=== PATIENT | male | born 1975 | race Caucasian/White ===

== ENCOUNTER 2020-09-04 00:31 | Inpatient (IN) | payer MEDICAID ==
[2020-09-04] VITALS (14 sets, daily range): BP systolic 99–117; BP diastolic 54–74
[~2020-09-04] VITALS: Ht 182.9 cm; Wt 109.5 kg
[~2020-09-04 00:31] MED LIST: DOCU100C40 PO; FAMO20TA8 PO; IBUP-1984 PO; LACT1CAP26 PO; LINE600T11 PO; NICO-631 TD
[2020-09-04] MEDS ORDERED: ringers solution, lactated 1000ml IV soln IV ONE (01:00)
[2020-09-04] MEDS ORDERED: haloperidol lactate 5mg/ml inj IM ONE (01:00)
[2020-09-04] MEDS ORDERED: LORazepam 2 mg/ml vial IM ONE (01:00)
[2020-09-04] MEDS ORDERED: diphenhydrAMINE 50 mg/ml inj IM ONE (01:00)
[2020-09-04] MEDS ORDERED: naloxone 2mg/2ml inj IV STA (02:22)
[2020-09-04 02:29] LABS: BASOPHILS % (AUTO) 0.1 % (0-1); EOSINOPHILS # (AUTO) 0.1 X10'3 (0-0.9); EOSINOPHILS % (AUTO) 0.4 % (0-6); HEMOGLOBIN 16.6 g/dl (14.0-17.9); LYMPHOCYTES # (AUTO) 0.5 X10'3 (1.1-4.8); LYMPHOCYTES % (AUTO) 3.1 % (21-51); MEAN CORPUSCULAR HEMOGLOBIN 31.4 PG (27.0-31.0); MEAN CORPUSCULAR HGB CONC 33.9 g/dL (33.0-36.5); MEAN CORPUSCULAR VOLUME 92.6 FL (78-98); MEAN PLATELET VOLUME 6.6 FL (7.4-10.4); MONOCYTES # (AUTO) 1.2 X10'3 (0-0.9); MONOCYTES % (AUTO) 7.4 % (2-12); NEUTROPHILS # (AUTO) 14.6 X10'3 (1.8-7.7); PLATELET COUNT 254 X10'3 (140-440); RED BLOOD COUNT 5.29 X10'6 (4.70-6.10); RED CELL DISTRIBUTION WIDTH 12.9 % (11.5-14.5); WHITE BLOOD COUNT 16.3 X10'3 (4.5-11.0)
[2020-09-04 02:32] LABS: ALANINE AMINOTRANSFERASE 46 U/L (12-78); ALBUMIN 4.7 G/DL (3.4-5.0); ALBUMIN/GLOBULIN RATIO 1.3 (1.1-1.5); ALKALINE PHOSPHATASE 79 IU/L (46-116); ANION GAP 15 (8-16); ASPARTATE AMINO TRANSFERASE 75 U/L (10-37); BILIRUBIN,TOTAL 1.2 MG/DL (0.1-1.0); BLOOD UREA NITROGEN 32 MG/DL (7-18); BUN/CREATININE RATIO 16.7 (5.4-32.0); CHLORIDE 109 MMOL/L (99-107); CREATININE 1.92 MG/DL (0.60-1.10); GLUCOSE 98 MG/DL (70-104); POTASSIUM 3.8 MMOL/L (3.5-5.1); SODIUM 150 MMOL/L (135-145); TOTAL CARBON DIOXIDE 25.7 MMOL/L (24-32); TOTAL PROTEIN 8.4 G/DL (6.4-8.2); eGFR 38 ML/MIN
[2020-09-04 02:41] LABS: CREATINE KINASE 1895 U/L (39-308); ETHANOL < 0.010 GM/DL (0.0-0.010)
[2020-09-04 03:19] LABS: URINE AMPHETAMINE SCREEN POSITIVE (Neg); URINE BARBITUATE SCREEN NEGATIVE (Neg); URINE BENZODIAZEPINES SCREEN NEGATIVE (Neg); URINE CANNABINOID SCREEN NEGATIVE (Neg); URINE COCAINE SCREEN NEGATIVE (Neg); URINE METHADONE SCREEN NEGATIVE (Neg); URINE OPIATE SCREEN POSITIVE (Neg); URINE PHENCYCLIDINE SCREEN NEGATIVE (Neg)
[2020-09-04] MEDS ORDERED: normal saline 1000ML IV soln IV ONE (03:20)
[2020-09-04] MEDS ORDERED: ondansetron/PF 4mg/2ml inj IV PRN (03:20)
[2020-09-04] MEDS ORDERED: ringers solution, lacted 1,000 ML IV SCH (03:20)
[2020-09-04] MEDS ORDERED: piperacillin/tazo 3.375gm/50ml 50 ML IV ONE (03:20)
[2020-09-04] MEDS ORDERED: dexmedetomidine/D5W 100mL 100 ML IV SCH (03:25)
[2020-09-04 03:39] LABS: COLOR,URINE YELLOW (Yellow); GLUCOSE, URINE NEGATIVE (Neg); KETONES,URINE 15 mg/dl (Neg); LEUKOCYTE ESTERASE ,URINE NEGATIVE (Neg); NITRITES, URINE NEGATIVE (Neg); OCCULT BLOOD,URINE MODERATE (Neg); PH,URINE 5.5 (4.8-8.0); PROTEIN,URINE 100 mg/dl (Neg)
[2020-09-04 03:50] LABS: CLARITY,URINE SLIGHTLY CLOUDY (Clear); UA COLLECTION TYPE NON-SPECIFIED
[2020-09-04 04:24] LABS: BACTERIA,URINE FEW /HPF (Neg); MUCUS STRANDS FEW /LPF (Neg); RBC,URINE 0-2 /HPF (0-2); SQUAMOUS EPITHELIAL CELL,UR FEW /LPF (FEW); WBC,URINE 0-4 /HPF (0-4)
[2020-09-04] MEDS ORDERED: vancomycin/NS 1 GM ADD-VANTAGE 250 ML IV ONE (05:15)
--- NOTE | 2020-09-04 05:25 | NUR ---
Patient to combative to go to CT right now.
[2020-09-04] MEDS: sodium chloride 0.45% 1,000 ML IV SCH ×3 (05:46→12:02)
[2020-09-04] MEDS ORDERED: piperacillin/tazo 3.375gm/50ml 50 ML IV SCH (08:00)
[2020-09-04] MEDS ORDERED: pantoprazole 40 MG vial IV SCH (08:00)
[2020-09-04] MEDS ORDERED: NO HOME MEDS (08:15)
--- NOTE | 2020-09-04 09:40 | NUR ---
called CT will come and get pt when able for ct
--- NOTE | 2020-09-04 10:15 | NUR ---
PT RECEIVED FROM CT SCAN TO ROOM 2013. SLEEPING, BUT AWAKENS TO VOICE - LOUD AND SHAKING. DR PENNY HERE. 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 UNSURE OF THE DAY OR WHY HES HERE. GOES RIGHT BACK TO SLEEP WHEN NOT TALKED TO. BUMP ON FOREHEAD WITH ABRASION. BRUISE RT INNER ARM. NUMEROUS BRUISES AND ABRASIONS ON BLE.
[2020-09-04] MEDS: piperacillin/tazo 3.375gm/50ml 50 ML IV SCH ×2 (12:03→19:18)
--- NOTE | 2020-09-04 12:44 | NUR ---
DR PENNY IN AGAIN- CONCERNED FRO REDDNES ON HANDS- SOME PARTS OF ARMS- ABX TO BE CONTINUED.
[2020-09-04 12:50] LABS: ALBUMIN 3.5 G/DL (3.4-5.0); ANION GAP 10 (8-16); BLOOD UREA NITROGEN 27 MG/DL (7-18); BUN/CREATININE RATIO 27.6 (5.4-32.0); CALCIUM 7.8 MG/DL (8.5-10.1); CHLORIDE 108 MMOL/L (99-107); CREATININE 0.98 MG/DL (0.60-1.10); GLUCOSE 86 MG/DL (70-104); POTASSIUM 3.7 MMOL/L (3.5-5.1); SODIUM 143 MMOL/L (135-145); TOTAL CARBON DIOXIDE 25.2 MMOL/L (24-32); eGFR 83 ML/MIN
[2020-09-04 12:51] LABS: CREATINE KINASE 2263 U/L (39-308)
[2020-09-04] MEDS: normal saline 1000ml 1,000 ML IV SCH ×2 (14:29→19:47)
--- NOTE | 2020-09-04 14:47 | NUR ---
LABS SHOWN TO . IVF CHANGED TO NS AT 150/HR FOR INC CK WITH NORMALIZING NA. LABS TO Q6H
--- NOTE | 2020-09-04 14:49 | NUR ---
PICC NURSE PAGED TO ATTEMPT MIDLINE OR US GUIDED PIV FOR LAB DRAWS PT A DIFFICULT STICK. ORGAN GRINDER CALLED. NO PICC NURSE TIL 5/3- NOTIFIED. PT TAKING FLUIDS WELL, OUTPUT BY FC ADEQUATE.
[2020-09-04] MEDS ORDERED: dexmedetomidine/D5W 100mL 100 ML IV PRN (16:00)
[2020-09-04] MEDS ORDERED: vancomycin/NS 1 GM ADD-VANTAGE 250 ML IV SCH (17:00)
[2020-09-04] MEDS: lactobacillus rhamnosus 10,000 MMU CELLS/CAPSULE PO SCH (19:18)
[2020-09-04 20:08] LABS: ALBUMIN 3.2 G/DL (3.4-5.0); ANION GAP 7 (8-16); BLOOD UREA NITROGEN 23 MG/DL (7-18); BUN/CREATININE RATIO 25.3 (5.4-32.0); CALCIUM 7.8 MG/DL (8.5-10.1); CHLORIDE 106 MMOL/L (99-107); CREATININE 0.91 MG/DL (0.60-1.10); GLUCOSE 100 MG/DL (70-104); POTASSIUM 3.5 MMOL/L (3.5-5.1); SODIUM 139 MMOL/L (135-145); TOTAL CARBON DIOXIDE 26.2 MMOL/L (24-32); eGFR > 90 ML/MIN
[2020-09-04 20:09] LABS: CREATINE KINASE 2147 U/L (39-308)
[2020-09-04] MEDS ORDERED: proCHLORperazine 10 MG/2 ml inj IV PRN (22:55)
[2020-09-05] VITALS (18 sets, daily range): BP systolic 94–138; BP diastolic 44–97
[2020-09-05] MEDS: piperacillin/tazo 3.375gm/50ml 50 ML IV SCH ×3 (03:06→20:35)
[2020-09-05] MEDS: normal saline 1000ml 1,000 ML IV SCH ×4 (03:20→17:40)
[2020-09-05 05:20] LABS: ALBUMIN 2.9 G/DL (3.4-5.0); ANION GAP 8 (8-16); BLOOD UREA NITROGEN 16 MG/DL (7-18); BUN/CREATININE RATIO 21.1 (5.4-32.0); CALCIUM 7.7 MG/DL (8.5-10.1); CHLORIDE 106 MMOL/L (99-107); CREATININE 0.76 MG/DL (0.60-1.10); GLUCOSE 126 MG/DL (70-104); POTASSIUM 3.4 MMOL/L (3.5-5.1); SODIUM 139 MMOL/L (135-145); TOTAL CARBON DIOXIDE 25.1 MMOL/L (24-32); eGFR > 90 ML/MIN
[2020-09-05 05:22] LABS: CREATINE KINASE 1578 U/L (39-308)
--- NOTE | 2020-09-05 06:08 | NUR ---
Problems reprioritized. Patient report given, questions answered & plan of care reviewed with Faina RN.
[2020-09-05] MEDS ORDERED: magnesium 4gm in 100ml NS 100 ML IV PRN (07:30)
[2020-09-05] MEDS ORDERED: magnesium Cl slow-release 64mg tablet PO PRN (07:30)
[2020-09-05] MEDS ORDERED: potassium Cl 40MEQ/1/2NS 520ml 520 ML IV PRN (07:30)
[2020-09-05] MEDS ORDERED: potassium Cl 20 mEq SR tablet PO PRN (07:30)
[2020-09-05 07:57] LABS: MAGNESIUM 1.9 MG/DL (1.5-2.4)
[2020-09-05] MEDS: K and/or MAG REPLACEMENT MC SCH ×2 (08:00→20:00)
[2020-09-05] MEDS: potassium Cl 20 mEq SR tablet PO PRN ×2 (08:37→14:14)
[2020-09-05] MEDS: lactobacillus rhamnosus 10,000 MMU CELLS/CAPSULE PO SCH ×2 (08:37→20:35)
--- NOTE | 2020-09-05 09:18 | NUR ---
Cassidy belcher dc"d per policy pt claribel dunbar
[2020-09-05 15:31] LABS: BASOPHILS % (AUTO) 0.3 % (0-1); EOSINOPHILS # (AUTO) 0.2 X10'3 (0-0.9); EOSINOPHILS % (AUTO) 2.7 % (0-6); HEMATOCRIT 42.1 % (42.0-52.0); HEMOGLOBIN 14.2 g/dl (14.0-17.9); LYMPHOCYTES # (AUTO) 0.7 X10'3 (1.1-4.8); LYMPHOCYTES % (AUTO) 12.1 % (21-51); MEAN CORPUSCULAR HEMOGLOBIN 31.3 PG (27.0-31.0); MEAN CORPUSCULAR HGB CONC 33.6 g/dL (33.0-36.5); MEAN PLATELET VOLUME 6.8 FL (7.4-10.4); MONOCYTES # (AUTO) 0.5 X10'3 (0-0.9); MONOCYTES % (AUTO) 8.9 % (2-12); NEUTROPHILS # (AUTO) 4.6 X10'3 (1.8-7.7); PLATELET COUNT 190 X10'3 (140-440); RED BLOOD COUNT 4.53 X10'6 (4.70-6.10); RED CELL DISTRIBUTION WIDTH 13.1 % (11.5-14.5); WHITE BLOOD COUNT 6.1 X10'3 (4.5-11.0)
[2020-09-05 15:52] LABS: ANION GAP 4 (8-16); BLOOD UREA NITROGEN 11 MG/DL (7-18); BUN/CREATININE RATIO 14.1 (5.4-32.0); CALCIUM 8.2 MG/DL (8.5-10.1); CHLORIDE 109 MMOL/L (99-107); CREATININE 0.78 MG/DL (0.60-1.10); GLUCOSE 123 MG/DL (70-104); POTASSIUM 3.7 MMOL/L (3.5-5.1); SODIUM 141 MMOL/L (135-145); TOTAL CARBON DIOXIDE 28.5 MMOL/L (24-32); eGFR > 90 ML/MIN
[2020-09-05 15:59] LABS: CREATINE KINASE 1120 U/L (39-308)
[2020-09-05] MEDS ORDERED: VANCOMYCIN LEVEL IV ONE (16:30)
--- NOTE | 2020-09-05 17:32 | NUR ---
Patient in room CICU 2012. I have received report from EMT/DISPATCHER Randolph and had the opportunity to ask questions and assume patient care.
--- NOTE | 2020-09-05 17:50 | NUR ---
Patient transferred to surgical unit; report given to Nikkie MCLEOD with all questions answered.
--- NOTE | 2020-09-05 17:50 | NUR ---
Patient arrived into room 357A. Patient appeared to be in good spirits and was able to transfer self into bed via wheelchair from RN. All personal items were sent. Pt was orientated to room and supplies and appears to be tolerating well to everything. VSS: BP:163/97, HR:81, O2((%RA, Temp:98.4, Pain 0/10. Patient's fluids NS@150 and finishing antibiotic. Mary Ellen RN is aware of needing a 2 RN skin check, but unit to unir transfer was complete. SCDS are on pt and pt is able to ambulate.
--- NOTE | 2020-09-05 18:26 | NUR ---
Patient in room [facility]. I have received report from SHANI Lundy and had the opportunity to ask questions and assume patient care.
--- NOTE | 2020-09-05 18:41 | NUR ---
Problems reprioritized. Patient report given, questions answered & plan of care reviewed with Mary Ellen MCLEOD.
[2020-09-05] MEDS: enoxaparin 40mg/0.4ml syringe SUBCUT SCH (20:36)
[2020-09-06] VITALS: BP 132/72
[2020-09-06] MEDS: piperacillin/tazo 3.375gm/50ml 50 ML IV SCH ×2 (04:26→12:22)
[2020-09-06] MEDS: normal saline 1000ml 1,000 ML IV SCH ×4 (06:00→13:59)
--- NOTE | 2020-09-06 06:24 | NUR ---
Patient in room [facility]. I have received report from SHANI Hyde and had the opportunity to ask questions and assume patient care.
--- NOTE | 2020-09-06 06:53 | NUR ---
Problems reprioritized. Patient report given, questions answered & plan of care reviewed with SHANI Larry.
[2020-09-06] MEDS: lactobacillus rhamnosus 10,000 MMU CELLS/CAPSULE PO SCH ×2 (07:02→19:57)
[2020-09-06 07:30] VITALS: BP 131/75
[2020-09-06] MEDS: K and/or MAG REPLACEMENT MC SCH ×2 (08:00→19:52)
--- NOTE | 2020-09-06 10:55 | NUR ---
Dr. Ang garcia lab was unable to obtain blood draw for 0300 labs ordered. Orders for CMP and CK for [address] Fry ok that all labs for 0300 and 1500 ordered to be drawn now. Asya in lab aware. Addendum: 09/06/20 at 1059 by Kendy Alvares RN All labs for today ordered for 0300 and 1500 ok to be drawn now per Dr. Fry.
--- NOTE | 2020-09-06 10:59 | NUR ---
Dr. Fry in to see patient.
[2020-09-06 11:00] VITALS: BP 132/89
--- NOTE | 2020-09-06 11:11 | NUR ---
x3 grease maker head attempted blood draw for labs but unsuccessful. Dr. Fry aware and ok to draw blood for lab from PIV.
[2020-09-06 11:36] LABS: BASOPHILS % (AUTO) 0.3 % (0-1); EOSINOPHILS # (AUTO) 0.2 X10'3 (0-0.9); EOSINOPHILS % (AUTO) 3.5 % (0-6); HEMATOCRIT 43.5 % (42.0-52.0); HEMOGLOBIN 14.7 g/dl (14.0-17.9); LYMPHOCYTES # (AUTO) 0.8 X10'3 (1.1-4.8); LYMPHOCYTES % (AUTO) 18.3 % (21-51); MEAN CORPUSCULAR HEMOGLOBIN 31.9 PG (27.0-31.0); MEAN CORPUSCULAR HGB CONC 33.9 g/dL (33.0-36.5); MEAN CORPUSCULAR VOLUME 94.1 FL (78-98); MEAN PLATELET VOLUME 7.6 FL (7.4-10.4); MONOCYTES # (AUTO) 0.5 X10'3 (0-0.9); MONOCYTES % (AUTO) 10.9 % (2-12); PLATELET COUNT 155 X10'3 (140-440); RED BLOOD COUNT 4.62 X10'6 (4.70-6.10); RED CELL DISTRIBUTION WIDTH 13.3 % (11.5-14.5); WHITE BLOOD COUNT 4.5 X10'3 (4.5-11.0)
[2020-09-06 11:51] LABS: ALBUMIN 3.2 G/DL (3.4-5.0); ANION GAP 11 (8-16); BLOOD UREA NITROGEN 7 MG/DL (7-18); BUN/CREATININE RATIO 11.3 (5.4-32.0); CALCIUM 8.3 MG/DL (8.5-10.1); CHLORIDE 108 MMOL/L (99-107); CREATININE 0.62 MG/DL (0.60-1.10); GLUCOSE 100 MG/DL (70-104); MAGNESIUM 1.8 MG/DL (1.5-2.4); SODIUM 141 MMOL/L (135-145); TOTAL CARBON DIOXIDE 22.2 MMOL/L (24-32); eGFR > 90 ML/MIN
[2020-09-06 11:53] LABS: CREATINE KINASE 834 U/L (39-308)
[2020-09-06 11:57] LABS: POTASSIUM 4.5 MMOL/L (3.5-5.1)
[2020-09-06 18:00] VITALS: BP 138/84
--- NOTE | 2020-09-06 18:16 | NUR ---
Problems reprioritized. Patient report given, questions answered & plan of care reviewed with SHANI Nieto.
--- NOTE | 2020-09-06 18:30 | NUR ---
Patient in room [facility]. I have received report from WARD MCLEOD and had the opportunity to ask questions and assume patient care.
[2020-09-06] MEDS: enoxaparin 40mg/0.4ml syringe SUBCUT SCH (19:58)
[2020-09-07] VITALS: BP 129/87
[2020-09-07] MEDS: normal saline 1000ml 1,000 ML IV SCH ×2 (02:00→08:40)
--- NOTE | 2020-09-07 06:43 | NUR ---
Problems reprioritized. Patient report given, questions answered & plan of care reviewed with ZACK MCLEOD.
--- NOTE | 2020-09-07 06:50 | NUR ---
Patient in room [facility]. I have received report from Emilia MCLEOD and had the opportunity to ask questions and assume patient care.
[2020-09-07 07:00] VITALS: BP 136/83
[2020-09-07] MEDS: K and/or MAG REPLACEMENT MC SCH (08:00)
[2020-09-07 09:41] LABS: BASOPHILS % (AUTO) 0.4 % (0-1); EOSINOPHILS # (AUTO) 0.2 X10'3 (0-0.9); EOSINOPHILS % (AUTO) 5.1 % (0-6); HEMATOCRIT 44.9 % (42.0-52.0); HEMOGLOBIN 15.5 g/dl (14.0-17.9); LYMPHOCYTES # (AUTO) 1.2 X10'3 (1.1-4.8); LYMPHOCYTES % (AUTO) 25.5 % (21-51); MEAN CORPUSCULAR HEMOGLOBIN 32.1 PG (27.0-31.0); MEAN CORPUSCULAR HGB CONC 34.6 g/dL (33.0-36.5); MEAN CORPUSCULAR VOLUME 92.6 FL (78-98); MEAN PLATELET VOLUME 7.1 FL (7.4-10.4); MONOCYTES # (AUTO) 0.5 X10'3 (0-0.9); MONOCYTES % (AUTO) 11.5 % (2-12); NEUTROPHILS # (AUTO) 2.7 X10'3 (1.8-7.7); NEUTROPHILS % (AUTO) 57.5 % (42-75); PLATELET COUNT 226 X10'3 (140-440); RED BLOOD COUNT 4.84 X10'6 (4.70-6.10); RED CELL DISTRIBUTION WIDTH 12.9 % (11.5-14.5); WHITE BLOOD COUNT 4.7 X10'3 (4.5-11.0)
[2020-09-07] MEDS: lactobacillus rhamnosus 10,000 MMU CELLS/CAPSULE PO SCH (09:54)
[2020-09-07 09:59] LABS: ALBUMIN 3.5 G/DL (3.4-5.0); ANION GAP 11 (8-16); BLOOD UREA NITROGEN 12 MG/DL (7-18); BUN/CREATININE RATIO 13.5 (5.4-32.0); CALCIUM 9.4 MG/DL (8.5-10.1); CHLORIDE 106 MMOL/L (99-107); CREATINE KINASE 414 U/L (39-308); CREATININE 0.89 MG/DL (0.60-1.10); GLUCOSE 104 MG/DL (70-104); MAGNESIUM 1.5 MG/DL (1.5-2.4); POTASSIUM 3.5 MMOL/L (3.5-5.1); SODIUM 142 MMOL/L (135-145); TOTAL CARBON DIOXIDE 25.4 MMOL/L (24-32); eGFR > 90 ML/MIN
[2020-09-07] MEDS ORDERED: MAGN64TA10 PO (10:03)
--- NOTE | 2020-09-07 11:35 | NUR ---
Patient was discharge and educated on worsening symptoms, medications, and follow up care. Patient Had no IV. Patient was taken down by Cam Patient Pen Ruler Operator.
== END 2020-09-07 11:13 | disposition home or self-care (01) | DRG 52 ==
LOC: ER 00:32 → ED HOLD 03:18 → CICU 2S 11:04 → SUR 3N 09-05 18:04
PROVIDERS: ADMIT Internal Medicine; ATTEND Internal Medicine
DX: G92 Toxic encephalopathy (principal); N17.0 Acute kidney failure with tubular necrosis; M62.82 Rhabdomyolysis; D72.823 Leukemoid reaction; F11.10 Opioid abuse, uncomplicated; F13.10 Sedative, hypnotic or anxiolytic abuse, uncomplicated; F15.10 Other stimulant abuse, uncomplicated; F12.90 Cannabis use, unspecified, uncomplicated; R74.8 Abnormal levels of other serum enzymes; G89.29 Other chronic pain; M54.9 Dorsalgia, unspecified; Z87.442 Personal history of urinary calculi; Z88.2 Allergy status to sulfonamides; E87.6 Hypokalemia
CPT/HCPCS: 36415; 70450; 71045; 80048; 80053; 80305; 80320; 81001; 82550; 83605; 83735; 84145; 85025; 87040; 87081; 93005; 96372; 96374; 99291; C9113; G0378; J1200; J1630; J1650; J2060; J2310; J2543; J3370; J7030; J7120

== ENCOUNTER 2021-10-23 23:55 | Emergency (ER) | payer MEDICAID ==
[~2021-10-23 23:55] MED LIST changes: -DOCU100C40 PO; -FAMO20TA8 PO; -IBUP-1984 PO; -LACT1CAP26 PO; -LINE600T11 PO; +MAGN64TA10 PO; -NICO-631 TD
== END 2021-10-24 00:33 | disposition left against medical advice (07) ==
LOC: ER 23:56
DX: Z02.89 Encounter for other administrative examinations (principal); Z53.21 Procedure and treatment not carried out due to patient leaving prior to being seen by health care provider

== ENCOUNTER 2022-01-22 02:06 | Emergency (ER) | payer MEDICAID ==
[~2022-01-22] VITALS: Ht 185.4 cm; Wt 86.4 kg
[2022-01-22] MEDS ORDERED: ketorolac trometh. 30mg/ml inj. IM ONE (02:15)
[2022-01-22 02:21] VITALS: BP 101/62
[2022-01-22] MEDS ORDERED: acetaminophen 325mg tablet PO ONE (02:55)
[2022-01-22 03:59] LABS: HEMATOCRIT 29.1 % (42.0-52.0); HEMOGLOBIN 9.8 g/dl (14.0-17.9); MEAN CORPUSCULAR HEMOGLOBIN 28.7 PG (27.0-31.0); MEAN CORPUSCULAR HGB CONC 33.8 g/dL (33.0-36.5); MEAN PLATELET VOLUME 7.1 FL (7.4-10.4); NEUTROPHILS % (AUTO) 82.1 % (42-75); PLATELET COUNT 139 X10'3 (140-440); RED BLOOD COUNT 3.43 X10'6 (4.70-6.10); RED CELL DISTRIBUTION WIDTH 13.9 % (11.5-14.5); WHITE BLOOD COUNT 5.2 X10'3 (4.5-11.0)
[2022-01-22 04:00] LABS: BASOPHILS % (AUTO) 0.3 % (0-1); EOSINOPHILS % (AUTO) 0.5 % (0-6); LYMPHOCYTES # (AUTO) 0.4 X10'3 (1.1-4.8); MONOCYTES # (AUTO) 0.5 X10'3 (0-0.9); MONOCYTES % (AUTO) 10.1 % (2-12); NEUTROPHILS # (AUTO) 4.3 X10'3 (1.8-7.7)
[2022-01-22 04:19] LABS: ALANINE AMINOTRANSFERASE 34 U/L (12-78); ALBUMIN 2.6 G/DL (3.4-5.0); ALBUMIN/GLOBULIN RATIO 0.7 (1.1-1.5); ALKALINE PHOSPHATASE 72 IU/L (46-116); ANION GAP 12 (8-16); ASPARTATE AMINO TRANSFERASE 30 U/L (10-37); BILIRUBIN,TOTAL 0.3 MG/DL (0.1-1.0); BLOOD UREA NITROGEN 15 MG/DL (7-18); BUN/CREATININE RATIO 14.7 (5.4-32.0); CALCIUM 8.2 MG/DL (8.5-10.1); CHLORIDE 98 MMOL/L (99-107); CREATININE 1.02 MG/DL (0.60-1.10); GLUCOSE 113 MG/DL (70-104); SODIUM 133 MMOL/L (135-145); TOTAL CARBON DIOXIDE 23.1 MMOL/L (24-32); TOTAL PROTEIN 6.4 G/DL (6.4-8.2); eGFR 79 ML/MIN
[2022-01-22 04:21] LABS: POTASSIUM 2.9 MMOL/L (3.5-5.1)
[2022-01-22] MEDS ORDERED: potassium Cl 20 mEq SR tablet PO STA (04:26)
[2022-01-22] MEDS ORDERED: POTA-207 PO (04:27)
== END 2022-01-22 05:10 ==
LOC: ER 02:07
DX: E87.6 Hypokalemia (principal); R50.9 Fever, unspecified; G89.29 Other chronic pain; R53.1 Weakness; F12.90 Cannabis use, unspecified, uncomplicated; F15.90 Other stimulant use, unspecified, uncomplicated; F11.90 Opioid use, unspecified, uncomplicated; F17.210 Nicotine dependence, cigarettes, uncomplicated; Z56.0 Unemployment, unspecified; Z79.899 Other long term (current) drug therapy; Z86.19 Personal history of other infectious and parasitic diseases; Z88.2 Allergy status to sulfonamides; Z87.442 Personal history of urinary calculi; Z72.89 Other problems related to lifestyle
CPT/HCPCS: 36415; 80053; 85025; 96372; 99284; J1885